=== PATIENT | female | born 2000 | race Caucasian/White ===

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

== ENCOUNTER 2020-04-25 22:37 | Emergency (ER) | payer OTHER, SELFPAY ==
--- OUTSIDE RECORDS SUMMARY | 2020-04-25 23:09 | XMS REPORT | Continuity of Care Document ---
:2000 Author Organization [facility] t Address [address] [place] [address] Care Team Providers Name Role Phone Jhonathan PINA, Neo Attending Clinician Problems This patient has no known problems. Allergies, Adverse Reactions, Alerts This patient has no known allergies or adverse reactions. Medications This patient has no known medications. Procedures This patient has no known procedures. Encounters Start End Encounter Admission Attending Care Care Encounter Source Date/Time Date/Time Type Type Clinicians Facility Department ID 2019-12-20 2019-12-20 Office Courtney Ring [facility] [id number] 13:32:03 14:30:25 Visit Neo Gupta [id number] Shakila [id number] Dian [id number] [facility] Results This patient has no known results.
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
[2020-04-26 15:37] VITALS: O2SAT 100
[2020-04-26 15:39] VITALS: BP 121/75; TEMP 98.5
== END 2020-04-26 02:17 | disposition home or self-care (01) ==
LOC: ER 22:37
DX: S16.1XXA Strain of muscle, fascia and tendon at neck level, initial encounter (principal); Y04.8XXA Assault by other bodily force, initial encounter; Y93.9 Activity, unspecified; Y92.9 Unspecified place or not applicable; Z72.0 Tobacco use
CPT/HCPCS: 70450; 72125; 99284